=== PATIENT | female | born 1995 | race Caucasian/White ===

== ENCOUNTER 2016-08-20 13:17 | Emergency (ER) | payer BC ==
[2016-08-20 13:35] VITALS: BP 120/85; PULSE 81; RESP 17; TEMP 98.2; O2SAT 93
--- NOTE | 2016-08-20 13:59 | EDPHY ---
H & P Time Seen by Provider: 08/20/16 13:31 HPI/ROS: CHIEF COMPLAINT: Odontalgia HISTORY OF PRESENT ILLNESS: 20-year-old female complaining of 3 days of right mandibular molar pain. Atraumatic. No fever no chills. No change in voice. PHYSICAL EXAM (Prior to examination, patient consented to physical exam, hands were washed and my usual and customary physical exam procedures followed) 1) GENERAL: Well-developed, well-nourished, alert and oriented. Appears to be in no acute distress. 2) HEAD: Normocephalic 3) HEENT: sclera anicteric . No trismus no drooling. Tender to percussion in the buccal gingiva at tooth number 29. Floor of mouth soft. Submandibular and submental space is soft. No evidence of Clayton's angina. Symmetrical faces. 4) LUNGS: Breathing comfortably. DIFFERENTIAL DIAGNOSIS: in no particular including but not limited to dental caries, gingivitis, Ludwigs Angina, facial abscess Smoking Status: Current some day smoker Constitutional: Initial Vital Signs Temperature (C) 36.8 C 08/20/16 13:33 Heart Rate 81 08/20/16 13:33 Respiratory Rate 17 08/20/16 13:33 Blood Pressure 120/85 H 08/20/16 13:33 O2 Sat (%) 93 08/20/16 13:33 O2 Delivery Mode Room Air Allergies/Adverse Reactions: No Known Allergies Allergy (Verified 08/20/16 13:32) Home Medications: Medication Instructions Recorded Amoxicillin Trihydrate 500 mg PO Q8 7 Days 08/20/16 [Amoxicillin 500mg cap] Hydrocodone/APAP 5/325 [Bovill 1 tab PO Q6 PRN #7 tab 08/20/16 5/325 (RX)] MDM/Departure - MDM Procedures: Procedure: Inferior alveolar dental nerve block Indications: Odontalgia Indications risks benefits discussed with patient and she consents. 0.5% plain bupivacaine administered in my usual and customary fashion achieving anesthesia. Patient tolerated procedure well. ED Course/Re-evaluation: No evidence of deep space infection, Clayton's angina. I do not think that imaging indicated. She has a dentist she can see on Sunday (today is Sunday) . Started on analgesia antibiotic and discharged with usual and customary odontogenic precautions Andinstructions.Care and management in consultation with secondary supervising physician Dr Hatfield . - Depart Disposition: Home, Routine, Self-Care Clinical Impression: Odontalgia Condition: Good Instructions: Toothache (ED) Additional Instructions: Return to the ER immediately if you cannot swallow, have drooling, fevers, neck stiffness, cannot open your jaw, or any other symptoms that concern you. Prescriptions: Amoxicillin Trihydrate [Amoxicillin 500mg cap] 500 mg PO Q8 7 Days Hydrocodone/APAP 5/325 [Bovill 5/325 (RX)] 1 tab PO Q6 PRN #7 tab PRN Reason: Pain, Severe Referrals: See, your dentist in the next 1-3 days [Other] - As per Instructions
== END 2016-08-20 14:10 | disposition home or self-care (01) ==
PROC: 3E0X3CZ (ICD-10-PCS; principal; 2016-08-20)
DX: K08.89 Other specified disorders of teeth and supporting structures (principal); F17.200 Nicotine dependence, unspecified, uncomplicated